=== PATIENT | male | born 1995 | race Caucasian/White ===

== ENCOUNTER 2017-10-21 23:01 | Emergency (ER) | payer SELFPAY ==
[2017-10-22] MEDS ORDERED: Adacel (T-DAP) 0.5 ML VIAL ONE (02:46)
== END 2017-10-22 03:00 | disposition home or self-care (01) ==
LOC: ERS 23:01
DX: S91.312A Laceration without foreign body, left foot, initial encounter (principal); J45.909 Unspecified asthma, uncomplicated; F31.9 Bipolar disorder, unspecified; F98.8 Other specified behavioral and emotional disorders with onset usually occurring in childhood and adolescence; F17.220 Nicotine dependence, chewing tobacco, uncomplicated; W26.0XXA Contact with knife, initial encounter; Y92.009 Unspecified place in unspecified non-institutional (private) residence as the place of occurrence of the external cause
CPT/HCPCS: 12001; 90471; 90715

== ENCOUNTER 2018-03-10 23:07 | Emergency (ER) | payer SELFPAY ==
[2018-03-11 00:07] LABS: Bilirubin Negative (Negative); Blood, Urine Negative (Negative); Clarity CLEAR (Clear); Glucose, Urine (Dipstick) Negative (Negative); Leukocyte Negative (Negative); Nitrite Negative (Negative); Protein, Urine (Dipstick) Negative (Neg-Trace); Specific Gravity, Urine 1.026 (1.002-1.036)
== END 2018-03-11 03:32 | disposition home or self-care (01) ==
LOC: ERS 23:07
DX: H66.93 Otitis media, unspecified, bilateral (principal); J45.909 Unspecified asthma, uncomplicated; F31.9 Bipolar disorder, unspecified; F98.8 Other specified behavioral and emotional disorders with onset usually occurring in childhood and adolescence; F17.220 Nicotine dependence, chewing tobacco, uncomplicated
CPT/HCPCS: 81003; 99283

== ENCOUNTER 2018-04-23 23:26 | Emergency (ER) | payer SELFPAY ==
[2018-04-24 00:04] LABS: #Basophils 0.1 thou/uL (0.0-0.2); #Eosinphils 0.4 thou/uL (0.0-0.7); #Lymphocytes 3.2 thou/uL (1.20-3.40); #Monocytes 1.4 thou/uL (0.11-0.59); #Neutrophils 8.2 thou/uL (1.40-6.50); %Basophils 0.7 % (0.0-1.0); %Eosinophils 2.9 % (0.0-10.0); %Lymphocytes 23.9 % (21.0-51.0); %Monocytes 10.5 % (0.0-10.0); Hemoglobin 17.1 g/dL (14.0-18.0); Mean Corpuscular HGB CONC 35.8 g/dL (32.0-36.0); Mean Corpuscular Hemoglobin 32.9 pg (27.0-31.0); Mean Corpuscular Volume 91.7 fL (78.0-98.0); Mean Platelet Volume 7.5 fL (7.4-10.4); Platelet Count 319 thou/uL (130-400); RBC Distribution Width 11.6 % (11.5-14.5); Red Blood Cell (RBC) Count 5.19 mill/uL (4.70-6.10); White Blood Cell (WBC) Count 13.2 thou/uL (4.8-10.8)
[2018-04-24 00:10] LABS: Bacteria/HPF None Seen HPF (None Seen); Bilirubin Small (Negative); Blood, Urine Negative (Negative); Clarity CLEAR (Clear); Glucose, Urine (Dipstick) Negative (Negative); Hyaline Casts/LPF 7-10 HYALINE CAST LPF (0-3 Hyaline); Leukocyte Negative (Negative); Nitrite Negative (Negative); Pathc Cast-AUWi Flag 0.43 (0-2.49); Protein, Urine (Dipstick) 30 mg/dL (Neg-Trace); RBC/HPF None Seen HPF (0-3); Squamous Epithelial None Seen HPF (0-3); WBC/HPF None Seen HPF (0-3); pH, Urine 5.5 (5.0-9.0)
[2018-04-24 00:18] LABS: ALT (SGPT) 89 U/L (8-55); AST (SGOT) 45 U/L (5-34); Albumin 4.6 g/dL (3.5-5.0); Alkaline Phosphatase 55 U/L (40-150); Anion Gap 14 mmol/L (10-20); BUN (Urea Nitrogen) 13 mg/dL (8.9-20.6); Bilirubin, Total 0.9 mg/dL (0.2-1.2); Calc. Creatinine Clearance 0 mL/min (70-130); Calcium 9.6 mg/dL (7.8-10.44); Carbon Dioxide 24 mmol/L (22-29); Chloride 105 mmol/L (98-107); Estimated GFR-MDRD Greater than 90; Globulin 2.7 g/dL (2.4-3.5); Glucose 93 mg/dL (70-105); Lipase 25 U/L (8-78); Potassium 3.7 mmol/L (3.5-5.1); Protein, Total 7.3 g/dL (6.0-8.3); Sodium 139 mmol/L (136-145)
[2018-04-24] MEDS ORDERED: Ondansetron ODT 8 MG TAB ONE (00:37)
--- NOTE | 2018-04-24 09:13 | CT ---
PRELIMINARY REPORT/[facility]/EMERGENTY AFTER-HOURS PROCEDURE CT Abdomen and Pelvis With Intravenous Contrast CLINICAL HISTORY: 22 years old, male; Pain; Abdominal pain; Generalized; Patient HX: [id number] presents with abd pain. Pt rep orts abd pain started suddenly 2-3 hours ago when he was about to go to bed. Father reports nausea, v omit x3. Pt denies pain similar to previous. Pt denies any diarrhea or dysuria. Pt denies taking any pain medication and takes no medications daily. Pt reports eating last at 5: 00pm. TECHNIQUE: Axial computed tomography images of the abdomen and pelvis with intravenous contrast. Coronal reforma tted images were created and reviewed. COMPARISON: No relevant prior studies available. FINDINGS: The lung bases are clear. Numerous small bowel loops appear to have some diffuse mucosal/wall thickening. While this is nonspec ific and could be a transient appearance, this may represent some type of gastroenteritis, inflammato ry bowel disease, or other inflammatory bowel process/enteritis. Please correlate clinically. No definite surrounding inflammatory changes. Some of the small bowel loops are also borderline to mildly dilated. However, the overall appearance is not strongly suggestive of significant small bowel obstruction at this time, as there does not appear to be an abrupt transition point. However, if there is clinical s uspicion for small bowel obstruction, follow-up may be helpful to exclude progression. No free intraperitoneal air, or ascites. No definite gallbladder abnormality by CT. No biliary tree dilation. There is fatty infiltration of the liver. The liver appears somewhat enlarged, with right lobe length of about 21 cm. No definite/significant focal hepatic abnormality. Unremarkable appearance of the spleen, kidneys, adrenal glands, and pancreas. There are a few borderl ine to mildly prominent right lower quadrant mesenteric lymph nodes. This is a nonspecific appearance . Mesenteric adenitis might be considered, although the current appearance is relatively mild. Please correlate clinically. No retroperitoneal adenopathy. CT pelvis: The appendix is visualized and appears normal. There are no CT findings to strongly suggest diverticulitis. No abnormal mass or fluid collection in the pelvis. IMPRESSION: Possible thickened mucosa/wall in some small bowel loops. Some of the small bowel loops are also borderline to mildly dilated. Please see above details/discussion. No free intraperitoneal air. Normal appendix. There are a few borderline to mildly prominent right lower quadrant mesenteric lymph nodes. See above discussion. Other findings discussed above. Thank you for allowing us to participate in the care of your patient. Dictated and Authenticated by: Antonio Caba MD 04/24/2018 1:33 AM Central Time ([place] & [place]) CT ABDOMEN AND PELVIS WITH IV CONTRAST: Date: 04-24-18 Performed on emergency basis at 0032 hours. History: Abdominal pain. Comparison: 04-26-17 FINDINGS: Agree with the preliminary report by Dr. Caba from [facility]. Very mild wall thickening involving much of the small bowel, predominately jejunum, is nonspecific an d could represent enteritis. No evidence of obstruction or appendicitis. Code QA. POS: [facility]
[2018-04-24] MEDS ORDERED: ISOVUE-370 76%-LOCM 1 ML ONE (09:56)
== END 2018-04-24 02:14 | disposition home or self-care (01) ==
LOC: ERS 23:26
DX: R10.11 Right upper quadrant pain (principal); R10.31 Right lower quadrant pain; R11.2 Nausea with vomiting, unspecified; J45.909 Unspecified asthma, uncomplicated; F31.9 Bipolar disorder, unspecified; F17.220 Nicotine dependence, chewing tobacco, uncomplicated; F98.8 Other specified behavioral and emotional disorders with onset usually occurring in childhood and adolescence; Z71.6 Tobacco abuse counseling
CPT/HCPCS: 36415; 74177; 80053; 81003; 81015; 83690; 85025; 96361; 96372; 96374; 99406; J2270

== ENCOUNTER 2018-05-01 01:26 | Emergency (ER) | payer SELFPAY ==
[2018-05-01] MEDS ORDERED: Ondansetron ODT 4 MG TAB ONE (01:56)
[2018-05-01 02:23] LABS: #Eosinphils 0.3 thou/uL (0.0-0.7); #Lymphocytes 2.2 thou/uL (1.20-3.40); #Monocytes 1.7 thou/uL (0.11-0.59); #Neutrophils 11.7 thou/uL (1.40-6.50); %Basophils 0.3 % (0.0-1.0); %Eosinophils 2.1 % (0.0-10.0); %Lymphocytes 13.6 % (21.0-51.0); %Monocytes 10.4 % (0.0-10.0); %Neutrophils 73.5 % (42.0-75.0); Hemoglobin 16.2 g/dL (14.0-18.0); Mean Corpuscular Hemoglobin 33.1 pg (27.0-31.0); Mean Corpuscular Volume 91.8 fL (78.0-98.0); Mean Platelet Volume 7.6 fL (7.4-10.4); Platelet Count 274 thou/uL (130-400); RBC Distribution Width 11.5 % (11.5-14.5); Red Blood Cell (RBC) Count 4.91 mill/uL (4.70-6.10); White Blood Cell (WBC) Count 15.9 thou/uL (4.8-10.8)
[2018-05-01 02:36] LABS: ALT (SGPT) 106 U/L (8-55); AST (SGOT) 57 U/L (5-34); Albumin 4.3 g/dL (3.5-5.0); Alkaline Phosphatase 52 U/L (40-150); Anion Gap 14 mmol/L (10-20); BUN (Urea Nitrogen) 9 mg/dL (8.9-20.6); Bilirubin, Total 0.9 mg/dL (0.2-1.2); CK (CPK) 347 U/L (30-200); Calc. Creatinine Clearance 0 mL/min (70-130); Calcium 9.4 mg/dL (7.8-10.44); Carbon Dioxide 23 mmol/L (22-29); Chloride 108 mmol/L (98-107); Estimated GFR-MDRD Greater than 90; Globulin 2.6 g/dL (2.4-3.5); Glucose 103 mg/dL (70-105); Lipase 68 U/L (8-78); Potassium 4.1 mmol/L (3.5-5.1); Protein, Total 6.9 g/dL (6.0-8.3); Sodium 141 mmol/L (136-145)
--- NOTE | 2018-05-01 07:24 | CT ---
CT ABDOMEN AND PELVIS WITH CONTRAST: Date: 05/01/18 HISTORY: Left lower quadrant pain. COMPARISON: CT abdomen and pelvis dated 04/24/18. FINDINGS: Lung bases are clear. No pericardial effusion. Spleen is enlarged, measuring almost 16.0 cm in length. Appendix is visualized and is normal. No dilated loops of large or small bowel. No hydronephrosis. No free intraperitoneal gas or fluid. No acute osseous abnormality. No retroperitoneal adenopathy. Aortoiliac contour is nonaneurysmal. IMPRESSION: 1. Normal appendix. 2. No acute inflammatory process in the abdomen or pelvis. 3. Splenomegaly. 4. Mild hepatomegaly. POS: [facility]
[2018-05-01] MEDS ORDERED: ISOVUE-370 76%-LOCM 1 ML ONE (10:46)
== END 2018-05-01 06:25 | disposition home or self-care (01) ==
LOC: ERS 01:26
DX: R10.31 Right lower quadrant pain (principal); J45.909 Unspecified asthma, uncomplicated; F31.9 Bipolar disorder, unspecified; F98.8 Other specified behavioral and emotional disorders with onset usually occurring in childhood and adolescence; F17.220 Nicotine dependence, chewing tobacco, uncomplicated
CPT/HCPCS: 74177; 80053; 82550; 83690; 85025; 96360; Q0162

== ENCOUNTER 2018-07-06 22:03 | Emergency (ER) | payer SELFPAY ==
--- NOTE | 2018-07-06 22:41 | RAD ---
RIGHT FOOT THREE VIEWS: 07/06/18 HISTORY: Right foot pain. FINDINGS: Lisfranc joint alignment is anatomic. Pes planus on the lateral view. Mild osteophytosis throughout t he foot. No acute fracture, dislocation, or radiopaque foreign bodies, or aggressive osseous destruct ion are apparent. IMPRESSION: No acute osseous abnormalities are demonstrated. POS: [facility]
[2018-07-06 23:03] LABS: ALT (SGPT) 85 U/L (8-55); AST (SGOT) 48 U/L (5-34); Albumin 4.3 g/dL (3.5-5.0); Alkaline Phosphatase 49 U/L (40-150); Anion Gap 15 mmol/L (10-20); BUN (Urea Nitrogen) 20 mg/dL (8.9-20.6); Bilirubin, Total 1.1 mg/dL (0.2-1.2); Calc. Creatinine Clearance 0 mL/min (70-130); Carbon Dioxide 23 mmol/L (22-29); Chloride 106 mmol/L (98-107); Estimated GFR-MDRD 90; Globulin 2.6 g/dL (2.4-3.5); Glucose 108 mg/dL (70-105); Potassium 3.8 mmol/L (3.5-5.1); Protein, Total 6.9 g/dL (6.0-8.3); Sodium 140 mmol/L (136-145)
[2018-07-06 23:14] LABS: #Basophils 0.1 thou/uL (0.0-0.2); #Eosinphils 0.4 thou/uL (0.0-0.7); #Lymphocytes 2.9 thou/uL (1.20-3.40); #Monocytes 1.2 thou/uL (0.11-0.59); #Neutrophils 8.6 thou/uL (1.40-6.50); %Basophils 0.7 % (0.0-1.0); %Eosinophils 3.1 % (0.0-10.0); %Lymphocytes 22.1 % (21.0-51.0); %Neutrophils 65.1 % (42.0-75.0); Hemoglobin 16.4 g/dL (14.0-18.0); Mean Corpuscular HGB CONC 36.6 g/dL (32.0-36.0); Mean Corpuscular Hemoglobin 33.9 pg (27.0-31.0); Mean Corpuscular Volume 92.7 fL (78.0-98.0); Mean Platelet Volume 7.9 fL (7.4-10.4); Platelet Count 278 thou/uL (130-400); RBC Distribution Width 11.2 % (11.5-14.5); Red Blood Cell (RBC) Count 4.83 mill/uL (4.70-6.10); White Blood Cell (WBC) Count 13.1 thou/uL (4.8-10.8)
[2018-07-06] MEDS ORDERED: Bacitracin Zinc 1 Packet ONE (23:20)
== END 2018-07-06 23:25 | disposition home or self-care (01) ==
LOC: ERS 22:03
DX: T69.021A Immersion foot, right foot, initial encounter (principal); F31.9 Bipolar disorder, unspecified; F98.8 Other specified behavioral and emotional disorders with onset usually occurring in childhood and adolescence; J45.909 Unspecified asthma, uncomplicated
CPT/HCPCS: 36415; 80053; 85025

== ENCOUNTER 2018-08-03 00:01 | Emergency (ER) | payer SELFPAY ==
[2018-08-03] MEDS ORDERED: Lidocaine 1% w/Epinephrine 1:100K 20 ML VIAL ONE (01:31)
[2018-08-03] MEDS ORDERED: Bacitracin Zinc 1 Packet ONE (02:26)
[2018-08-03] MEDS ORDERED: Adacel (T-DAP) 0.5 ML VIAL ONE (02:26)
--- NOTE | 2018-08-03 08:33 | RAD ---
RIGHT HAND 3 VIEWS: HISTORY: Injury. COMPARISON: Radiograph 01/16/2014. FINDINGS: On the dorsum of the hand is a soft tissue laceration with 2 separate small foreign bodies, the first is triangular-shaped measuring 2 x 2 mm and the other measures 1 x 2 mm. IMPRESSION: Two small radiopaque foreign objects on the dorsum of the hand at the level of the metacarpals on see n on the lateral radiograph with small focus of subcutaneous emphysema. No acute fracture is appreci ated. POS: [facility]
== END 2018-08-03 03:06 | disposition home or self-care (01) ==
LOC: ERS 00:01
DX: S61.411A Laceration without foreign body of right hand, initial encounter (principal); J45.909 Unspecified asthma, uncomplicated; F98.8 Other specified behavioral and emotional disorders with onset usually occurring in childhood and adolescence; F17.220 Nicotine dependence, chewing tobacco, uncomplicated; W25.XXXA Contact with sharp glass, initial encounter
CPT/HCPCS: 12001; 90471; 90715; J2001

== ENCOUNTER 2018-08-06 23:32 | Emergency (ER) | payer SELFPAY | END 2018-08-06 23:50 | disposition home or self-care (01) | LOC: ERS 23:32 | DX: S61.411D Laceration without foreign body of right hand, subsequent encounter (principal); T81.33XA Disruption of traumatic injury wound repair, initial encounter; J45.909 Unspecified asthma, uncomplicated; F31.9 Bipolar disorder, unspecified; F98.8 Other specified behavioral and emotional disorders with onset usually occurring in childhood and adolescence; F17.220 Nicotine dependence, chewing tobacco, uncomplicated; Z71.6 Tobacco abuse counseling; W25.XXXD Contact with sharp glass, subsequent encounter ==

== ENCOUNTER 2018-08-14 07:21 | Emergency (ER) | payer SELFPAY ==
[2018-08-14 07:55] LABS: Bilirubin Negative (Negative); Blood, Urine Negative (Negative); Clarity CLEAR (Clear); Glucose, Urine (Dipstick) Negative (Negative); Leukocyte Negative (Negative); Nitrite Negative (Negative); Protein, Urine (Dipstick) Trace mg/dL (Neg-Trace); Specific Gravity, Urine 1.029 (1.002-1.036); pH, Urine 5.5 (5.0-9.0)
[2018-08-14] MEDS ORDERED: Ondansetron HCl/PF 4 MG/2 ML Vial ONE (07:56)
[2018-08-14] MEDS ORDERED: Ketorolac Tromethamine 30 MG/ML VIAL ONE (07:56)
[2018-08-14 08:16] LABS: #Eosinphils 0.4 thou/uL (0.0-0.7); #Lymphocytes 1.7 thou/uL (1.20-3.40); #Monocytes 1.1 thou/uL (0.11-0.59); #Neutrophils 6.2 thou/uL (1.40-6.50); %Basophils 0.4 % (0.0-1.0); %Lymphocytes 17.7 % (21.0-51.0); %Monocytes 11.6 % (0.0-10.0); %Neutrophils 66.4 % (42.0-75.0); Hemoglobin 15.3 g/dL (14.0-18.0); Mean Corpuscular HGB CONC 34.8 g/dL (32.0-36.0); Mean Corpuscular Hemoglobin 32.5 pg (27.0-31.0); Mean Corpuscular Volume 93.3 fL (78.0-98.0); Mean Platelet Volume 7.7 fL (7.4-10.4); Platelet Count 292 thou/uL (130-400); RBC Distribution Width 11.5 % (11.5-14.5); Red Blood Cell (RBC) Count 4.72 mill/uL (4.70-6.10); White Blood Cell (WBC) Count 9.4 thou/uL (4.8-10.8)
[2018-08-14 08:37] LABS: ALT (SGPT) 48 U/L (8-55); AST (SGOT) 23 U/L (5-34); Albumin 4.2 g/dL (3.5-5.0); Alkaline Phosphatase 55 U/L (40-150); Anion Gap 12 mmol/L (10-20); BUN (Urea Nitrogen) 13 mg/dL (8.9-20.6); Calc. Creatinine Clearance 0 mL/min (70-130); Calcium 9.2 mg/dL (7.8-10.44); Carbon Dioxide 25 mmol/L (22-29); Chloride 106 mmol/L (98-107); Estimated GFR-MDRD Greater than 90; Globulin 2.8 g/dL (2.4-3.5); Glucose 105 mg/dL (70-105); Lipase 34 U/L (8-78); Potassium 3.8 mmol/L (3.5-5.1); Sodium 139 mmol/L (136-145)
== END 2018-08-14 10:37 | disposition home or self-care (01) ==
LOC: ERS 07:21
DX: R10.13 Epigastric pain (principal); R11.2 Nausea with vomiting, unspecified; R19.7 Diarrhea, unspecified; L03.115 Cellulitis of right lower limb; L03.116 Cellulitis of left lower limb; J45.909 Unspecified asthma, uncomplicated; F31.9 Bipolar disorder, unspecified; F98.8 Other specified behavioral and emotional disorders with onset usually occurring in childhood and adolescence; F17.220 Nicotine dependence, chewing tobacco, uncomplicated
CPT/HCPCS: 80053; 81003; 83690; 85025; 87081; 87430; 96374; 96375; J1885; J2405